=== PATIENT | male | born 1960 | race African-American/Black ===

== ENCOUNTER 2020-06-15 03:20 | Emergency (ER) | payer BC ==
[~2020-06-15] VITALS: Ht 172.7 cm; Wt 109.0 kg
[2020-06-15] MEDS ORDERED: LABETALOL HCL 20MG/4ML CARPUJECT IV ONE (03:45)
[2020-06-15] MEDS ORDERED: FUROSEMIDE 40MG/4ML VIAL IV ONE (03:45)
[2020-06-15] MEDS ORDERED: NITROGLYCERIN OINT 1GM/INCH UDPKT TD ONE (03:45)
[2020-06-15] MEDS ORDERED: LABETALOL 5MG/ML SYR 20 MG/4 ML SYRINGE IV NR (04:00)
[2020-06-15 04:09] LABS: BASOPHILS % 0.5 % (0.0-2.0); EOSINOPHILS % 2.6 % (0.0-5.0); HEMATOCRIT. 47.2 % (42.0-52.0); HEMOGLOBIN. 15.3 g/dL (14.0-18.0); LYMPHOCYTES % 29.9 % (20.0-50.0); MEAN CORPUSCULAR HEMOGLOBIN 26.9 pg (28.0-32.0); MEAN CORPUSCULAR VOLUME 82.8 fL (80.0-94.0); MEAN PLATELET VOLUME 9.2 fl (7.4-10.4); MONOCYTES % 11.1 % (2.0-8.0); NEUTROPHILS % 55.9 % (40.0-76.0); PLATELET 213 x1000/uL (130-400); RED CELL DISTRIBUTION WIDTH 14.3 % (11.6-14.6)
[2020-06-15 04:25] LABS: CHLORIDE 104 mEq/L (98-107)
[2020-06-15] MEDS ORDERED: HYDRALAZINE 20MG/ML VIAL IV ONE (05:00)
[2020-06-15 05:02] LABS: *AMPHETAMINES SCREEN URINE NEGATIVE (NEGATIVE); *BARBITURATES SCREEN URINE NEGATIVE (NEGATIVE); *BENZODIAZEPINES SCREEN URINE NEGATIVE (NEGATIVE); *COCAINE SCREEN URINE NEGATIVE (NEGATIVE); METHADONE URINE SCREEN NEGATIVE (NEGATIVE); OPIATES URINE SCREEN NEGATIVE (NEGATIVE)
[2020-06-15 05:03] LABS: CANNABINOID URINE SCREEN NEGATIVE (NEGATIVE); PHENCYCLIDINE URINE SCREEN NEGATIVE (NEGATIVE)
[2020-06-15] MEDS ORDERED: ENOXAPARIN 40MG/0.4ML SYR SUBCUT SCH ×2 (06:45→08:00)
[2020-06-15] MEDS ORDERED: NITROGLYCERIN 0.4MG TABLET SL SL PRN (06:45)
[2020-06-15] MEDS ORDERED: IPRATROPIUM/ALBUTEROL 0.5-3(2.5)MG/3ML NEB NEB PRN (06:45)
[2020-06-15] MEDS ORDERED: AMLODIPINE 10MG TABLET PO SCH (06:45)
[2020-06-15] MEDS ORDERED: DOCUSATE SODIUM 100MG CAPSULE PO PRN (06:45)
[2020-06-15] MEDS ORDERED: GUAIFENESIN 200MG/10ML SUGAR FREE UDC PO PRN (06:45)
[2020-06-15] MEDS ORDERED: CLONIDINE 0.1MG TABLET PO PRN (06:45)
[2020-06-15] MEDS ORDERED: KETOROLAC 15MG/ML VIAL IV PRN (06:45)
[2020-06-15] MEDS ORDERED: ONDANSETRON HCL 4MG/2ML INJ IV PRN (06:45)
[2020-06-15 08:30] VITALS: BP 212/110
[2020-06-15 08:33] LABS: FOLIC ACID (FOLATE) SERUM 9.2 ng/mL (>5.38)
[2020-06-15] MEDS ORDERED: ASCORBIC ACID 500 MG TABLET PO SCH (09:00)
[2020-06-15] MEDS ORDERED: ASPIRIN 325MG EC TABLET PO SCH (09:00)
[2020-06-15] MEDS ORDERED: METOPROLOL TARTRATE 25MG TABLET PO SCH (09:00)
[2020-06-15] MEDS ORDERED: CHOLECALCIFEROL (D3) 1000 UNIT TABLET PO SCH (09:00)
[2020-06-15] MEDS ORDERED: ZINC SULFATE 220 MG ( 50 ) CAPSULE PO SCH (09:00)
[2020-06-15] MEDS ORDERED: FAMOTIDINE 20MG TABLET PO SCH (09:00)
[2020-06-15] MEDS ORDERED: MAGNESIUM/ALUMINUM HYDROXIDE/SIMETHICONE 30ML UDC PO PRN (09:00)
[2020-06-15] MEDS ORDERED: NITROGLYCERIN OINT 1GM/INCH UDPKT TD SCH (10:00)
[2020-06-15] MEDS ORDERED: HYDRALAZINE HCL 50MG TABLET PO SCH (14:00)
[2020-06-15] MEDS ORDERED: ZOLPIDEM TARTRATE 5MG TABLET PO PRN (21:00)
== END 2020-06-15 08:51 | disposition left against medical advice (07) ==
LOC: ER 03:20 → EDBEDREQTM 05:01 → EDBEDREQ 05:01 → EDBEDREQSVC 05:01 → CANRESERV 07:46 → ENRESERV 07:46 → ER 08:51 → CANBEDREQ 19:23
DX: J96.91 Respiratory failure, unspecified with hypoxia (principal); N17.9 Acute kidney failure, unspecified; I10 Essential (primary) hypertension; Z88.6 Allergy status to analgesic agent; Z88.5 Allergy status to narcotic agent
CPT/HCPCS: 36415; 71045; 78580; 80053; 80061; 80305; 82607; 82746; 83036; 83540; 83550; 83880; 84484; 85025; 85379; 93005; 96374; 96375; 99291; A9540; J0360; J1940; J3490

== ENCOUNTER 2020-06-18 02:57 | Emergency (ER) | payer BC ==
[~2020-06-18] VITALS: Ht 188 cm; Wt 122.0 kg
[2020-06-18] MEDS ORDERED: ASPIRIN 81MG TABLET PO ONE (03:30)
[2020-06-18] MEDS ORDERED: FUROSEMIDE 40MG/4ML VIAL IV ONE (03:30)
[2020-06-18] MEDS ORDERED: LABETALOL HCL 20MG/4ML CARPUJECT IV ONE (03:30)
[2020-06-18 04:28] LABS: BASOPHILS % 0.5 % (0.0-2.0); EOSINOPHILS % 3.5 % (0.0-5.0); HEMATOCRIT. 42.7 % (42.0-52.0); HEMOGLOBIN. 13.8 g/dL (14.0-18.0); LYMPHOCYTES % 18.8 % (20.0-50.0); MEAN CORPUSCULAR VOLUME 83.1 fL (80.0-94.0); MEAN PLATELET VOLUME 9.2 fl (7.4-10.4); MONOCYTES % 9.1 % (2.0-8.0); NEUTROPHILS % 68.1 % (40.0-76.0); PLATELET 196 x1000/uL (130-400); RED BLOOD CELL COUNT 5.13 mill/uL (4.7-6.1); RED CELL DISTRIBUTION WIDTH 14.2 % (11.6-14.6)
[2020-06-18 04:34] LABS: CHLORIDE 104 mEq/L (98-107)
[2020-06-18 09:00] VITALS: BP 171/101
== END 2020-06-18 10:07 | disposition left against medical advice (07) ==
LOC: ER 02:57 → CANBEDREQ 10:39
DX: R77.8 Other specified abnormalities of plasma proteins (principal); I12.9 Hypertensive chronic kidney disease with stage 1 through stage 4 chronic kidney disease, or unspecified chronic kidney disease; N18.9 Chronic kidney disease, unspecified; Z91.14 Patient's other noncompliance with medication regimen; Z88.6 Allergy status to analgesic agent; Z88.5 Allergy status to narcotic agent
CPT/HCPCS: 36415; 71045; 80053; 83880; 84484; 85025; 93005; 96374; 99285; J1940; J3490; Z7610